=== PATIENT | female | born 2000 | race Caucasian/White ===

== ENCOUNTER 2020-05-20 15:25 | Emergency (ER) | payer OTHER, SELFPAY ==
[2020-05-20 15:47] VITALS: BP 134/83; PULSE 87; RESP 18; TEMP 36.8; O2SAT 98; BMI 20.3
[2020-05-20 15:52] VITALS: BP 134/83; PULSE 87; RESP 18; TEMP 36.8; O2SAT 98
[2020-05-20 15:53] VITALS: BP 128/74; PULSE 73; RESP 17; TEMP 36.8; O2SAT 99; BMI 20.3
[2020-05-20 15:57] VITALS: BP 134/83; PULSE 87; RESP 17; TEMP 36.4; O2SAT 98
--- NOTE | 2020-05-20 16:03 | HMH.EDUTC ---
[facility] [place] Disposition Clinical Impression: URI (upper respiratory infection) Qualifiers: URI type: unspecified URI Qualified Code(s): J06.9 - Acute upper respiratory infection, unspecified Disposition: Home, Self-Care Condition on Discharge: Good Instructions: Sore Throat, DI for Sinusitis Additional Instructions: *Monitor Temp, Over the counter Motrin or Tylenol as directed/as needed Tylenol every 4 hours and Motrin every 6 hours (as long as your family doctor has told you that you can take it) for fever or pain. and straight to ER if unable to lower temp less than 101.0 after medication given *Warm salt water gargles may help to soothe the throat *Throat Lozenges *Warm fluids like tea with honey may help to soothe the throat *Sleep elevated *Humidifier/Vaporizer Follow up IMMEDIATELY for new or worsening symptoms or no Noticeable improvement over the next 48-72 hours. 911 for difficulty breathing or swallowing You were tested for today for COVID19 your test result should be back in the next 24-48 hours, you may call to the [facility] to see if your test results are back in the next 48 hours [phone] [facility] hours are 9am-9pm You was given a handout with instructions for Self Quarantine and Self isolation for while you wait on test results and what to do if they are positive If you are positive the Health Dept will be contacting you also Prescriptions: Azithromycin [Z-Uziel 250mg Tab] 250 mg PO DIRECTED #6 tab Transmission Status: Received by [id number] Referrals: Jamel Saucedo MD [Primary Care Provider] - As needed Time of Disposition: 16:12 Medical Decision Making - Andrzej Inquiry Pt receiving controlled substance: No Andrzej was queried for this patient: No Vital Signs: 05/20/20 15:47 05/20/20 15:52 05/20/20 15:53 Temperature 98.2 F 98.2 F 98.2 F Temperature Source Oral Oral Pulse Rate 87 Pulse Rate [Left] 87 73 Respiratory Rate 18 18 17 Blood Pressure 134/83 Blood Pressure [Right Arm] 134/83 128/74 Blood Pressure Mean [Right Arm] 100 92 Blood Pressure Source [Right Arm] Automatic Cuff Automatic Cuff Blood Pressure Position [Right Arm] Sitting Sitting 02 Sat by Pulse Oximetry 98 99 Oxygen Delivery Method Room Air Room Air 05/20/20 15:57 Temperature 97.6 F Temperature Source Oral Pulse Rate 87 Pulse Rate [Left] Respiratory Rate 17 Blood Pressure 134/83 Blood Pressure [Right Arm] Blood Pressure Mean [Right Arm] Blood Pressure Source [Right Arm] Blood Pressure Position [Right Arm] 02 Sat by Pulse Oximetry Oxygen Delivery Method - Lab Data Lab results reviewed: Yes: I reviewed the patient's lab results. Orders (Tests/Meds): ORDERS Category Date Time Status Covid-19 Nasal PCR Sendout [facility] 05/20/20 16:14 Ordered [facility] HPI - General Stated complaint: Cough Time Seen by Provider: 05/20/20 16:04 Mode of Arrival: Ambulatory Source of Information: Patient Limitations: No Limitations Description of Symptoms (Recalled from Triage Doc. by RN): headache, stuffy nose, sinus drainage HEENT Symptoms (Recalled from RN notes): Yes Resp Symptoms (Recalled from RN notes): Yes Skin Symptoms (Recalled from RN notes): No MS Symptoms (Recalled from RN notes): No Functional Status (Recalled from RN notes): wnl - History of Present Illness Provider Complaint: Mother states that she has been complaining of sinus pain and pressure along with cough and headache State that she complained yesterday that her ears felt full States that she was worried that she may have a sinus infection and wanted to get her checked and tested for COVID - Related Data Previous Rx's Medication Instructions Recorded Amoxicillin [Amoxicillin 500mg 500 mg PO TID #30 cap 11/20/18 Cap] Azithromycin [Z-Zuiel 250mg Tab] 250 mg PO DIRECTED #6 tab 05/20/20 Allergies Allergy/AdvReac Type Severity Reaction Status Date / Time No Known Allergies Allergy Verified
[2020-05-22 13:53] LABS: Covid-19 Nasal PCR Sendout Lex POSITIVE
--- NOTE | 2020-05-22 14:00 | PC.NURSE ---
Anai Estrada notified of patient's positive results. Anai states that patient has a mental disorder and she is her guardian.
== END 2020-05-20 16:31 | disposition home or self-care (01) ==
PROVIDERS: Emergency Provider Nurse Practitioner; PCP Specialist
DX: U07.1 COVID-19 (principal)
CPT/HCPCS: 99201; U0004

== ENCOUNTER 2021-12-16 12:23 | Emergency (ER) | payer OTHER, SELFPAY ==
[2021-12-16 12:50] VITALS: BP 109/76; PULSE 76; RESP 19; TEMP 38; O2SAT 99
--- NOTE | 2021-12-16 13:17 | HMH.EDUTC ---
[facility] [place] Clinical Impression: URI (upper respiratory infection) Qualifiers: URI type: unspecified URI Qualified Code(s): J06.9 - Acute upper respiratory infection, unspecified Disposition: Home, Self-Care Condition on Discharge: Good Instructions: Sore Throat, Azithromycin Additional Instructions: *Monitor Temp, Over the counter Motrin or Tylenol as directed/as needed Tylenol every 4 hours and Motrin every 6 hours (as long as your family doctor has told you that you can take it) for fever or pain. and straight to ER if unable to lower temp less than 101.0 after medication given *Warm salt water gargles may help to soothe the throat *Throat Lozenges *Warm fluids like tea with honey may help to soothe the throat *Sleep elevated *Humidifier/Vaporizer Your throat swab was sent for culture. Those results are typically sent to your primary care. Be sure to follow up in 2-3 days with your family doctor/primary care physician if no improvement so they can review those result and treat if necessary. If you don?t have a primary care doctor, I recommend you get one but in the mean time, you will have to return to a walk in clinic Follow up IMMEDIATELY for new or worsening symptoms or no Noticeable improvement over the next 48-72 hours. 911 for difficulty breathing or swallowing Prescriptions: Azithromycin [Z-Uziel 250mg Tab] 250 mg PO DIRECTED #6 tab Transmission Status: Pending to [facility] Referrals: Jamel Saucedo MD [Primary Care Provider] - As needed Time of Disposition: 14:39 Medical Decision Making - Andrzej Inquiry Pt receiving controlled substance: No Andrzej was queried for this patient: No Vital Signs: 12/16/21 12:50 Temperature 100.4 F H Temperature Source Oral Pulse Rate [Right Brachial] 76 Respiratory Rate 19 Blood Pressure [Right Arm] 109/76 L Blood Pressure Mean [Right Arm] 87 Blood Pressure Source [Right Arm] Automatic Cuff Blood Pressure Position [Right Arm] Sitting 02 Sat by Pulse Oximetry 99 Oxygen Delivery Method Room Air - Lab Data Lab results reviewed: Yes: I reviewed the patient's lab results. Lab Results 12/16/21 13:34: Group A Strep Rapid Negative 12/16/21 14:16: Monoscreen Negative Orders (Tests/Meds): ORDERS Category Date Time Status Strep Screen Confirmation Stat Micro 12/16/21 13:34 Received Medical Decision Narrative: Patient strep test just back and negative concerned for Garrett will draw and perform mono testing [facility] [place] - General Stated complaint: sore throat/swelling Time Seen by Provider: 12/16/21 13:17 Mode of Arrival: Ambulatory Source of Information: Patient Limitations: No Limitations Description of Symptoms (Recalled from Triage Doc. by RN): PATIENT C/O SORE THROAT AND SWOLLEN FACE SINCE YESTERDAY HEENT Symptoms (Recalled from RN notes): Yes Resp Symptoms (Recalled from RN notes): No Skin Symptoms (Recalled from RN notes): No MS Symptoms (Recalled from RN notes): No Functional Status (Recalled from RN notes): WNL - History of Present Illness Provider Complaint: Mother states that she has been complaining that her throat hurts and feels swollen for the last couple of days States that she thought she had bitten her jaw so she has had her gargling listerine States that today she looked a little puffy under her eyes and was still complaining so she brought her in - Related Data Previous Rx's Medication Instructions Recorded Azithromycin [Z-Uziel 250mg Tab] 250 mg PO DIRECTED #6 tab 12/16/21 Allergies Allergy/AdvReac Type Severity Reaction Status Date / Time cefdinir Allergy Verified 12/16/21 13:04 - Worker's Comp Is this a Worker's Comp case?: No [facility] History - Hepatitis A Screen Attestation statement:: This patient has been screened for Hepatitis A risk factors. I have reviewed the patient's past medical history: Yes - Social History Smoking Status: Never smoker Alcohol Intake
[2021-12-16 13:49] LABS: Strep Scrn Group A (Rapid) Negative (Negative)
[2021-12-16 14:27] LABS: Monoscreen (Rapid) Negative (Negative)
[2021-12-16 14:40] VITALS: BP 109/76; PULSE 76; RESP 19; TEMP 38; O2SAT 99
== END 2021-12-16 14:42 | disposition home or self-care (01) ==
PROVIDERS: Emergency Provider Nurse Practitioner; PCP Specialist
DX: J06.9 Acute upper respiratory infection, unspecified (principal)
CPT/HCPCS: 86318; 87430; 99212; G0463